=== PATIENT | female | born 1985 | race Caucasian/White ===

== ENCOUNTER 2020-02-15 11:40 | Outpatient (CLI) | payer OTHER, SELFPAY ==
--- NOTE | ~2020-02-15 | US_ITS ---
EXAMINATION: US breast LT limited HISTORY: Palpable lump in the upper inner quadrant of the left breast TECHNIQUE: Limited left breast ultrasound is performed. FINDINGS: There is no evidence of focal abnormal cystic or solid mass in the vicinity of the reported palpable abnormality of concern. IMPRESSION: No specific sonographic correlate is identified for the reported palpable abnormality of concern. Fur ther evaluation at this time should be based on clinical assessment. Continued follow-up physical exa mination is recommended. BI-RADS Category 1: Negative Reviewed, dictated and finalized at location A. IMPRESSION: No specific sonographic correlate is identified for the reported palpable abnor mality of concern. Further evaluation at this time should be based on clinical assessment. Continued follow-up physical examination is recommended. BI-RADS Category 1: Negative
== END 2020-02-15 11:41 | disposition home or self-care (01) ==
PROVIDERS: PCP Obstetrics & Gynecology; Visit Provider Obstetrics & Gynecology
DX: N63.22 Unspecified lump in the left breast, upper inner quadrant (principal)
CPT/HCPCS: 76642

== ENCOUNTER 2024-10-29 09:19 | Outpatient (CLI) | payer OTHER, SELFPAY ==
--- NOTE | ~2024-10-29 | XR_ITS ---
XR toe 1st RT min 2V Ordering provider: Ugo Deng MD History: . M79.676 - Pain in unspecified toe(s) . Comparison: None. FINDINGS: BONES: No acute fracture or dislocation. JOINT SPACES: Osteoarthritic changes of the first metatarsophalangeal joint. SOFT TISSUES: Normal. IMPRESSION: No acute osseous abnormality. Osteoarthritic changes. Reviewed, dictated and finalized at location A.
--- NOTE | ~2024-10-29 | XR_ITS ---
AP view of the pelvis and lateral view of the left hip Clinical history: Pain Findings: No acute fracture or dislocation is seen. Osseous alignment is anatomic. Left hip joint is intact. Soft tissues are unremarkable. Impression: No significant abnormality is seen. Reviewed, dictated and finalized at [facility]. Impression: No significant abnormality is seen.
== END 2024-10-29 09:20 | disposition home or self-care (01) ==
PROVIDERS: PCP Family Medicine; Visit Provider Family Medicine
DX: M70.62 Trochanteric bursitis, left hip (principal); M79.674 Pain in right toe(s); M19.071 Primary osteoarthritis, right ankle and foot
CPT/HCPCS: 73502; 73660

== ENCOUNTER 2024-12-17 14:15 | Outpatient (CLI) | payer OTHER, SELFPAY ==
--- NOTE | ~2024-12-17 | US_ITS ---
EXAMINATION: US soft tissue head and neck DATE: 12/17/2024 14:29 INDICATION: Left neck painful lump TECHNIQUE: Multiple grayscale and Doppler ultrasound images of the region of concern at the left neck were obtained. COMPARISON: None FINDINGS: At the region of concern are a couple mildly prominent but normal sized ovoid hypoechoic lymph nodes with echogenic fatty fatuma at the left neck. The largest measures 1.9 x 1.2 x 0.6 cm and the smaller m easures 1.4 x 1.3 x 0.4 cm. There is an additional 10 x 9 x 9 mm round hypoechoic nodule situated bet ween the left thyroid lobe and the left common carotid artery and internal jugular vein which could r epresent lymph node with a typical spherical shape versus thyroid nodule. IMPRESSION: 1. A couple typical appearing mildly prominent but sized left jugular chain lymph nodes which are lik marina reactive. 2. 9-10 mm. Hypoechoic nodule along the lateral margin of the left thyroid lobe which could represen t either a borderline enlarged and atypically spherical shaped lymph node or a TI RADS 4 thyroid nodu le which would remain below criteria for either biopsy or follow-up. Reviewed, dictated and finalized at location A. IMPRESSION: 1. A couple typical appearing mildly prominent but sized left jugular chain lym ph nodes which are likely reactive. 2. 9-10 mm. Hypoechoic nodule along the lateral margin of the left thyroid lob e which could represent either a borderline enlarged and atypically spherical s haped lymph node or a TI RADS 4 thyroid nodule which would remain below criteri a for either biopsy or follow-up.
== END 2024-12-17 14:16 | disposition home or self-care (01) ==
LOC: GOSHIMG 14:16
PROVIDERS: PCP Family Medicine; Visit Provider Nurse Practitioner Family
DX: R22.1 Localized swelling, mass and lump, neck (principal)
CPT/HCPCS: 76536

== ENCOUNTER 2024-12-25 12:38 | Outpatient (CLI) | payer OTHER, SELFPAY ==
--- NOTE | ~2024-12-25 | US_ITS ---
Thyroid ultrasound. Clinical History: Thyroid nodule Findings: Real-time sonography of the thyroid gland was performed. The right lobe measures 4.9 x 1.9 x 1.7 cm. The left lobe measures 3.5 x 1.2 x 1.4 cm. The isthmus is 3 mm in AP diameter. There is a 2 mm hypoechoic nodule at the left lower pole. Impression: 2 mm hypoechoic left thyroid lobe nodule. This requires no further follow-up.. Reviewed, dictated and finalized at location . Impression: 2 mm hypoechoic left thyroid lobe nodule. This requires no further follow-up..
== END 2024-12-25 12:39 | disposition home or self-care (01) ==
LOC: MICIMG 12-26 12:41
PROVIDERS: PCP Family Medicine; Visit Provider Nurse Practitioner Family
DX: E04.1 Nontoxic single thyroid nodule (principal)
CPT/HCPCS: 76536

== ENCOUNTER 2025-03-06 10:18 | Outpatient (CLI) | payer OTHER, SELFPAY ==
--- NOTE | ~2025-03-06 | MM_ITS ---
EXAMINATION: MM screening teodoro BI w pranav HISTORY: Screening TECHNIQUE: Craniocaudal and mediolateral oblique 3-D tomosynthesis images were obtained and synthetic 2-D images were generated. CAD analysis was submitted and interpreted. COMPARISON: No prior mammogram is available for comparison at this institution. BREAST PARENCHYMAL COMPOSITION: Dense: The breasts are heterogeneously dense, which may obscure small masses FINDINGS: There is no evidence of suspicious mass, calcification, or architectural distortion to sugg est malignancy in either breast. There has been no suspicious interval change. IMPRESSION: 1. No mammographic evidence of malignancy. 2. Recommend routine screening mammography in one year. BI-RADS Category 1: Negative Reviewed, dictated and finalized at location A.
--- OUTSIDE RECORDS SUMMARY | 2025-03-06 10:21 | XMS_ITS | Clinical Summary ---
Author Organization [facility] Address [address] [place] [address] Care Team Providers Care Forest Ecologist Name Role Phone Unavailable Primary Care Provider Unavailabl e Source Comments [facility],non-owned Affiliates and Associated Physician Practices is amultiple site organization consisting of ambulatory clinics and hospital sitesin [place], [place], [place] and [place]. This disclosure is being madepursuant to the Care Everywhere program and may not contain all information available regarding this patient. 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 Gender Identity Not on file Sexual Orientation Not on file Plan of Treatment Health Maintenance Due Date Last Done Comments LIPID TESTING 1984 MAMMOGRAM 1984 HIV SCREENING 11/14/1999 HEPATITIS C SCREENING 11/09/2002 DTAP/TDAP/TD VACCINES (1 - Tdap) 11/14/2003 HEPATITIS B VACCINE (1 of 3 - 19+ 3-dose series) 11/14/2003 PAP SMEAR 2005 HPV VACCINE (1 - 3-dose SCDM series) 11/14/2011 COVID-19 VACCINE (1 - 2023-2 5 season) 2024 DEPRESSION SCREENING 08/12/2024 INFLUENZA VACCINE (#1) 2025 ZOSTER VACCINE (1 of 2) 2034 HIB VACCINE Aged Out No longer eligi ble based on patient's age to complete this topic MENINGOCOCCAL (Group B) VACC INE SHARED DECISION-MAKING Aged Out No longer eligibl e based on patient's age to complete this topic MENINGOCOCCAL GROUPS A/C/Y/W VACCINE Aged Out No longer eligible b ased on patient's age to complete this topic PNEUMOCOCCAL VACCINE Aged Out No long er eligible based on patient's age to complete this topic Insurance [facility]
--- OUTSIDE RECORDS SUMMARY | 2025-03-06 10:21 | XMS_ITS | Encounter Summary ---
Author Organization [facility] Address [address] [place] [address] Phone Care Team Providers Care Clinical Appeals Reviewer Name Role Phone Unavailable Primary Care Provider Unavailabl e Reason for Visit * Reason Comments Medication Refill Encounter Details Date Type Department Care Team (Late st Contact Info) Description 03/11/2024 Refill [facility] - Primary Care - [place] [address] [place] [address] Meredith Greer, VACUUM SYSTEM TESTER, BODY RECALL INSTRUCTOR [address] [place] [address] Medication Refill Social History Tobacco Use Types Packs/Day Years Used Date Smoking Tobacco: Former Smokeless Tobacco: Never Comments:Socially Alcohol Use Standard Drinks/Week Comments Yes 0 (1 standard drink = 0.6 oz pur e alcohol) Rare PHQ-2 Answer Date Recorded Total Score - Questions 1-9 0 12/10 Education Answer Date Recorded What is the highest level of school you have completed or the highest degree you have received? Associate degree: occupational, technical, or vocational program 04/24/2022 Sexually Active Control Partners Comments Not Currently Comments No Sex and Gender Information Value Date Recorded Sex Assigned at Not on file Legal Sex Female 8:53 AM CDT Gender Identity Not on file Sexual Orientation Not on file documented as of this encounter Miscellaneous Notes * Telephone Encounter - Orly Earl RN - 03/11/2024 8:54 AM CDT Patient no longer has a PCP in this office. documented in this encounter Plan of Treatment Not on file documented as of this encounter Visit Diagnoses Not on filedocumented in this encounter
--- OUTSIDE RECORDS SUMMARY | 2025-03-06 10:21 | XMS_ITS | Clinical Summary ---
Author Organization [facility] Address [address] [place] [address] Phone Care Team Providers Care Commission Sales Associate Name Role Phone Unavailable Primary Care Provider Unavailabl e Allergies Active Allergy Reactions Criticality Noted Date Comments Sulfa Antibiotics Hives 12/20/2021 Medications omeprazole (PriLOSEC) 40 MG CAPSULE DELAYED RELEASEIndicatio ns:Gastroesophag eal reflux disease with esophagitis without hemorrhage Take 1 Capsule by mouth daily. Take 30 minutes before meals with protein 180 Capsule 2 Active Additional Information Patient taking differently:40 mg Oral DAILY,Take 30 minutes before meals with protein//prn, Reported on 09/17/2022 hydrOXYzine (ATARAX) 25 MG Tablet Take 1 Tablet by mouth every 6 hours as needed for Anxiety or Sleep. 90 Tablet 1 3 Active busPIRone (BUSPAR) 10 MG Tablet Take 1 Tablet by mouth 3 times daily. 270 Tablet 1 3 Active Active Problems Problem Noted Date Diagnosed Date Anxiety and depression 01/24/2022 Gastroesophageal reflux dise ase with esophagitis without hemorrhage 01/24/2022 Chronic migraine 01/11/2016 Overview (12/27/2021): Tension headache Last Assessment & Plan: This is her second regular office visit, first one about a year ago and basically for the same problem. Headaches are unchanged, possibly slightly worse. She has a pressure-like headache in the left posterior parietal/occipital area that occurs two or 3 times a week. Typically it will respond to Motrin, but sometimes she has to take another dose in the evening. Certain movements of the head seem to make it worse especially rotation. About 10 days ago, she had intermittent lancinating sharp pains in this area that lasted seconds at a time but recurred periodically throughout the day. Those pains did not respond to Motrin. She did not have visual scotoma, diplopia, focal neurological symptoms, fever or any other worrisome associated symptom. No nausea. She went home and after sleeping, the sharp pains had dissipated. She has not had a recurrence since then. Exam is normal including funduscopic exam. 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 When she was here last time, we referred her to physical therapy, but she never went. We will refer her again, and also have her evaluated by Neurology for their opinion. Return here in two months or sooner as needed. Overweight 01/10/2015 Overview (12/27/2021): Overweight Last Assessment & Plan: Weight is down a few pounds. She is working on this. Continue efforts. Immunizations Immunization Administration Dates Next Due Influenza Vaccine, Quadrivalent, PF 06/11/2018 Influenza Vaccine,unspecified Formulation 2018,06/12/2018 Influenza, Injectable, Quadrivalent 06/05/2019 TDAP Vaccine 03/28/2018,09/13/2014,06/10/2009 Family History Medical History Relation Name Comments Heart Disease Father Relation Name Status Comments Father Social History Tobacco Use Types Packs/Day Years Used Date Smoking Tobacco: Former Smokeless Tobacco: Never Tobacco Cessation:Counseling Given: Not Answered Comments:Socially Alcohol Use Standard Drinks/Week Comments Yes [...] on file Sexual Orientation Not on file Last Filed Vital Signs Vital Sign Reading Time Taken Comments Blood Pressure 104/78 09/17/2022 8:44 AM GOVERNMENT AFFAIRS SPECIALIST Pulse 83 09/17/2022 8:44 AM GOVERNMENT AFFAIRS SPECIALIST Temperature 36.7 C (98 F) 09/17/2022 8:44 AM GOVERNMENT AFFAIRS SPECIALIST Respiratory Rate 20 09/17/2022 8:44 AM GOVERNMENT AFFAIRS SPECIALIST Oxygen Saturation 98% 09/17/2022 8:44 AM GOVERNMENT AFFAIRS SPECIALIST Inhaled Oxygen Concentration - - Weight 71.6 kg (157 lb 12.8 oz) 09/17/2022 8:44 AM GOVERNMENT AFFAIRS SPECIALIST Height 154.9 cm (5' 1) 09/17/2022 8:44 AM GOVERNMENT AFFAIRS SPECIALIST Body Mass Index 29.82 09/17/2022 8:44 AM GOVERNMENT AFFAIRS SPECIALIST Plan of Treatment Health Maintenance Due Date Last Done Comments Hepatitis C Virus (HCV) Screening 1984 Mammogram 1984 Human Papillomavirus (HPV) Immunization (1 - 3-dose series) 11/14/1999 Hepatitis B Immunization (1 of 3 - 19+ 3-dose series) 11/14/2003 Pap Smear 2005 Cervical Cancer Screening (CCS) 2014 HPV/Cotest 2014 SARS-COV-2 Immunization ( season) 2024 Discussion re Starting/Frequency of Mammograms 2024 Influenza Immunization (#1) 04/12/202505/13, 06/05/2019, 06/12/2018, Additional history exists Respiratory Syncytial Virus (RSV) Immunization (Adult) (1 - 1-dose 75+ series) 11/14/2059 DTaP/Tdap/Td Immunization Discontinued 2017, 09/13/2014, 06/10/2009 Meningococcal Immunization (ACWY) Aged Out No longer eligible based on patient's age to complete this topic Pneumococcal Immunization Combined Aged Out No longer eligible based on patient's age to complete this topic Rotavirus Immunization Aged Out No lo nger eligible based on patient's age to complete this topic Insurance [facility]
--- OUTSIDE RECORDS SUMMARY | 2025-03-06 10:21 | XMS_ITS | Clinical Summary ---
Author Organization [facility] Address [address] [place] [address] Care Team Providers Care Business Leader Name Role Phone Gm Ya MD Primary Care Provider [phone] Farhat Lazo MD Unavailable [phone] Allergies Active Allergy Reactions Criticality Noted Date Comments Sulfa (Sulfonamide Antibiotics) Medications sertraline (ZOLOFT) 25 mg tablet Take 25 mg by mouth daily. 4 Active escitalopram (LEXAPRO) 20 mg tablet Take 20 mg by mouth daily 1 Active ALPRAZolam (XANAX) 0.5 mg tablet TAKE 1 TABLET BY MOUTH EVERY DAY NEEDED FOR ANXIETY 1 Active predniSONE (DELTASONE) 10 mg tabletIndicatio ns:Allergic dermatitis Take 4 tablets days 1-3, take 3 tablets days 4-6, take 2 tablets days 7-9, take 1 tablet days 10-14 32 tablet 1 Active Additional Information Patient not taking.Reported on 05/18/2021 buPROPion XL (WELLBUTRIN XL) 150 mg 24 hr tablet Take 150 mg by mouth daily 1 Active Active Problems Problem Noted Date Diagnosed Date Poison renee dermatitis 12/10/2020 Overview (12/12/2020): Phone message, not responding to topical and symptomatic Rx obtained OTC, Rx for Medrol Dosepak sent, ROMD. Assessment & Plan (12/12/2020 11:57 AM CDT): Phone message, not responding to topical and symptomatic Rx obtained OTC, Rx for Medrol Dosepak GORDON boo. Chronic migraine 01/11/2016 Overview (11/16/2016): Tension headache Assessment & Plan (07/07/2017 5:29 PM KEY PUNCH OPERATOR): This is her second regular office visit, [...] in two months or sooner as needed. Sinusitis 01/17/2015 Overview (11/16/2016): Sinusitis Overweight 01/10/2015 Overview (11/16/2016): Overweight Assessment & Plan (06/26/2017 3:36 PM KEY PUNCH OPERATOR): Weight is down a few pounds. She is working on this. Continue efforts. Persistent mood disorder 08/12/2013 Overview (11/16/2016): Mood disorder Assessment & Plan (06/26/2017 3:35 PM KEY PUNCH OPERATOR): She has been on a low-dose of generic Zoloft for many years. She tried to come off it once and felt terrible. She thinks the dose is 25 milligrams. We added it to her list. It is prescribed by her manager intermediate doctor. We may consider increasing it for her headaches, but are deferring for now pending physical therapy and neurology evaluations. Immunizations Immunization Administration Dates Next Due Influenza, Unspecified 06/05/2019,06/12/2018 Tdap 09/13/2014,06/10/2009 Medical History Medical History Date Comments Headache Family History Medical History Relation Name Comments Coronary artery disease Father Leticia nary artery disease; Other Father Blood clots, le gs; Other Other 1 1 Other Other 2 1 Relation Name Status Comments Father Other 1 Other 2 Social History Tobacco Use Types Packs/Day Years Used Date Smoking Tobacco: Former Smokeless Tobacco: Never Alcohol Use Standard Drinks/Week Comments Yes 0 (1 standard drink = 0.6 oz pur e alcohol) Personal Safety Answer Date Recorded Getting School Help Needed Not on file 10/05 Comments Unknown Sex and Gender Information Value Date Recorded Sex Assigned at Not on file Legal Sex Female 9:43 AM KEY PUNCH OPERATOR Gender Identity Not on file Sexual Orientation Not on file Obstetrics History Para Term AB IAB SAB Ectopic Multiple Livin g Live Births 1 Date Outcome GA Total Labor Labor/2nd/3rd Weight Sex Type Anes PTL Nay A1 A5 Name Clin Last Filed Vital Signs Vital Sign Reading Time Taken Comments Blood Pressure 124/70 05/18/2021 8:48 AM CDT Pulse 83 05/18/2021 8:48 AM CDT Temperature 36.9 C (98.5 F) 05/18/2021 8:48 AM CDT Respiratory Rate 20 05/18/2021 8:48 AM CDT Oxygen Saturation 99% 05/18/2021 8:48 AM CDT Inhaled Oxygen Concentration - - Weight 65.8 kg (145 lb) 05/18/2021 8:48 AM CDT Height 154.9 cm (5' 1) 05/18/2021 8:48 AM CDT Body Mass Index 27.4 05/18/2021 8:48 AM CDT Plan of Treatment Not on file Insurance AETNA SIG [id number] CIGNA AETNA SIG [id number] Care Teams Business Leader Relationship Specialty Start Date End Date Gm Ya MD [address] [address] PCP - General 11/09/16 Farhat Lazo MD [address] [facility] [address] [address] Consulting Physician Obstetrics and Gynecology 06/26/17
--- OUTSIDE RECORDS SUMMARY | 2025-03-06 10:21 | XMS_ITS | Encounter Summary ---
Author Organization [facility] Address [address] [place] [address] Care Team Providers Care Hot Baller Name Role Phone Unavailable Primary Care Provider Unavailabl e Encounter Details Date Type Department Care Team (Late st Contact Info) Description 03/21/2023 Lab Requisition [facility] - DermPath Lab [address] [place] [id number] Tung Resendiz MD [address] [place] [address] Social History Tobacco Use Types Packs/Day Years Used Date Smoking Tobacco: Never Assessed Comments Unknown Sex and Gender Information Value Date Recorded Sex Assigned at Not on file Legal Sex Female 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 Gender Identity Not on file Sexual Orientation Not on file documented as of this encounter Plan of Treatment Not on file documented as of this encounter Procedures Procedure Name Priority Date/Time Associated Diagnosis Comments DERMATOPATHOLOGY Routine 03/20/2023 12:0 0 AM CDT documented in this encounter Results * DERMATOPATHOLOGY (03/20/2023 12:00 AM CDT) Case Report Dermatopathology Report Case: [id number] Authorizing Provider: Tung Resendiz MD Collected: 03/20/2023 12:00 AM Ordering Location: [facility] Received: 03/21/2023 01:51 PM Pathologist: Josemanuel Vargas MD Specimen: Skin, top left scapula 1:07 PM CDT DERMATOPATHOLOGY LABORATORY Final Diagnosis Specimen A. SKIN, top left scapula: LICHEN PLANUS-LIKE KERATOSIS (BENIGN LICHENOID KERATOSIS) (L82.1) 1:07 PM CDT DERMATOPATHOLOGY LABORATORY at 1307 CDT Clinical History R/O BCC, SCC 3 1:07 PM CDT DERMATOPATHOLOGY LABORATORY Gross Description Specimen A: Received is one formalin filled container labeled with the patient's name and designated top left scapula. The specimen consists of a shave biopsy measuring 4x4x1 mm. Jar 0. 3 1:07 PM CDT DERMATOPATHOLOGY LABORATORY Microscopic Description Specimen A. SKIN, top left scapula: The epidermis is mildly acanthotic. There is a lichenoid infiltrate with vacuolar changes of basilar keratinocytes and scattered necrotic keratinocytes. 3 1:07 PM CDT DERMATOPATHOLOGY LABORATORY Disclaimer An external and internal positive and negative controls are appropriate for the histochemical, immunohistochemical and immunofluorescence stain(s) in this case (if any), except where stated explicitly. The performance characteristics of the stain(s) cited in this report were developed and its performance characteristic determined by the Dermatopathology Laboratory at [facility], directed by Dr. Antoine Vargas. These tests need not be, and therefore are not, approved by the [place] Food and Drug Administration. The tests are used for clinical purposes. Billing Codes Specimen Charges Stain Charges 40843 1 3 1:07 PM CDT DERMATOPATHOLOGY LABORATORY Embedded Images 3 1:07 PM CDT DERMATOPATHOLOGY LABORATORY Pathology/Cytolog y TISSUE SPECIMEN FROM SKIN / Unknown 03/20/2023 03/21/2023 1:51 PM CDT Tung Resendiz MD LAB - PATHOLOGY/CYTOLOGY ORD ERABLES Final Result DERMATOPATHOLOGY LABORATORY [facility] - Department of Dermatology [address] [place] [address], [facility] [phone] documented in this encounter Visit Diagnoses Not on filedocumented in this encounter
--- OUTSIDE RECORDS SUMMARY | 2025-03-06 10:21 | XMS_ITS | Referral Summary ---
Author Organization [facility] Address [address] [place] [address] Care Team Providers Care Classroom Aide Name Role Phone Gm Ya MD Primary Care Provider [phone] Farhat Lazo MD Unavailable [phone] Allergies Active Allergy Reactions Criticality Noted Date [...] headache Assessment & Plan (07/07/2017 5:29 PM SHEEP KILLER): This is her second regular office visit, [...] Overweight Assessment & Plan (06/26/2017 3:36 PM SHEEP KILLER): Weight is down a few pounds. She is working on this. Continue efforts. Persistent mood disorder 08/12/2013 Overview (11/16/2016): Mood disorder Assessment & Plan (06/26/2017 3:35 PM SHEEP KILLER): She has been on a low-dose of generic Zoloft for many years. She tried to come off it once and felt terrible. She thinks the dose is 25 milligrams. We added it to her list. It is prescribed by her competitive shopper doctor. We may consider increasing it for her headaches, but are deferring for now pending physical therapy and neurology evaluations. Immunizations Immunization Administration Dates Next Due Influenza, Unspecified 06/05/2019,06/12/2018 Tdap 09/13/2014,06/10/2009 Social History Tobacco Use Types Packs/Day Years [...] on file Legal Sex Female 9:43 AM SHEEP KILLER Gender Identity Not on file Sexual Orientation [...] Treatment Not on file Insurance AETNA SIG [id number] CIGNA AETNA SIG [id number] Care Teams Classroom Aide Relationship Specialty Start Date End Date Stabell, Gm C., MD [address] [facility] [address] [place] [address] PCP - General 11/09/16 Farhat Lazo MD [address] [facility] [address] [place], [place] [id number] Consulting Physician Obstetrics and Gynecology 06/26/17
== END 2025-03-06 10:19 | disposition home or self-care (01) ==
LOC: ANHIMG 10:19
PROVIDERS: PCP Family Medicine; Visit Provider Obstetrics & Gynecology
DX: Z12.31 Encounter for screening mammogram for malignant neoplasm of breast (principal)
CPT/HCPCS: 77063; 77067